=== PATIENT | male | born 1970 | race Caucasian/White ===

== ENCOUNTER → 2021-02-09 | Outpatient (CLI) | payer BC ==
--- NOTE | 2021-02-09 15:14 | KCIC ---
Examination: MRI of the right shoulder without contrast HISTORY: History of right shoulder pain COMPARISON: None available TECHNIQUE: Multiplanar, multisequence MR imaging of the right shoulder performed without contrast. FINDINGS: The long head of the biceps tendon within the bicipital groove. The attachment of the long head the b iceps tendon to the superior labral anchor grossly appears intact. The attachment of the subscapulari s tendon grossly appears intact. There is subtle increased T2 signal identified in the undersurface o f the supraspinatus tendon small partial undersurface tear measuring 5 mm. The alignment of the infra spinatus, teres minor tendon grossly appears intact. The muscle bulk grossly appears unremarkable. Th e acromion is type II. Moderate degenerative acromioclavicular joint. Fat is present within the rotator interval. The visualized labrum grossly appears unremarkable. IMPRESSION: 1. Small partial undersurface tear of the supraspinatus tendon. 2. Moderate degenerative changes acromioclavicular joint. Electronically signed by: Mikhail Conn MD (02/09/2021 3:12 PM) [id number]
== END ==
LOC: KCIC MRI 13:06
PROVIDERS: ATTEND Nurse Practitioner Family
DX: M75.111 Incomplete rotator cuff tear or rupture of right shoulder, not specified as traumatic (principal); M19.011 Primary osteoarthritis, right shoulder
CPT/HCPCS: 73221